=== PATIENT | female | born 1950 | race Caucasian/White ===

== ENCOUNTER → 2016-05-08 | Outpatient (CLI) | payer BC ==
[~2016-05-08] VITALS: Ht 160 cm; Wt 95.3 kg
[~2016-05-08] MED LIST: CENTTAB PO; KEPP250T5 PO; LIDOCAINE 2% INJ 100 MG/5 ML SDV (FOR ANES.) As Ordered ONE; NEXI40CA PO; NS 1,000 ML IV SCH; PROPOFOL 200 MG/20 ML VIAL As Ordered ONE; VITA200038 PO; [UNRECOGNIZED DRUG - CODE] PO
--- NOTE | 2016-05-08 09:10 | ROOR ---
Patient Name: Vicki Bourgeois Procedure Date: 05/08/2016 8:56 AM Date of : 1950 Age: 65 Room: [facility] Gender: Female Note Status: Finalized Procedure: Upper GI endoscopy Indications: Heartburn Providers: Norris Castillo MD Referring MD: DALY ELLIOTT JR, MD Requesting Provider: Medicines: Monitored Anesthesia Care Complications: No immediate complications. Procedure: Pre-Anesthesia Assessment: - The heart rate, respiratory rate, oxygen saturations, blood pressure, adequacy of pulmonary ventilation, and response to care were monitored throughout the procedure. The Endoscope was introduced through the mouth, and advanced to the second part of duodenum. The upper GI endoscopy was accomplished without difficulty. The patient tolerated the procedure well. Findings: The Z-line was variable and was found 37 cm from the incisors. A small hiatus hernia was present. No other significant abnormalities were identified in a careful examination of the stomach. The exam of the duodenum was otherwise normal. Impression: - Z-line variable, 37 cm from the incisors. - Small hiatus hernia. - No specimens collected. - The examination was otherwise normal. Recommendation: - Patient has a contact number available for emergencies. The signs and symptoms of potential delayed complications were discussed with the patient. Return to normal activities tomorrow. Written discharge instructions were provided to the patient. - High fiber diet. - Discharge patient to home. - Follow an antireflux regimen. - Continue present medications. - Return to referring physician. - The findings and recommendations were discussed with the patient's family. Norris Castillo MD Norris Castillo MD 05/08/2016 9:10:38 AM This report has been signed electronically. Number of Addenda: 0 Note Initiated On: 05/08/2016 8:56 AM Estimated Blood Loss: Estimated blood loss: none.
--- NOTE | 2016-05-08 09:27 | ROOR ---
Patient Name: Vicki Bourgeois Procedure Date: 05/08/2016 8:57 AM Date of : 1950 Age: 65 Room: [facility] Gender: Female Note Status: Finalized Procedure: Colonoscopy to Cecum + Cold Snare Polypectomy Indications: Screening for colorectal malignant neoplasm Providers: Norris Castillo MD Referring MD: DALY ELLIOTT JR, MD Requesting Provider: Medicines: Monitored Anesthesia Care Complications: No immediate complications. Procedure: Pre-Anesthesia Assessment: - The heart rate, respiratory rate, oxygen saturations, blood pressure, adequacy of pulmonary ventilation, and response to care were monitored throughout the procedure. The Colonoscope was introduced through the anus and advanced to the cecum, identified by appendiceal orifice and ileocecal valve. The colonoscopy was performed without difficulty. The patient tolerated the procedure well. The quality of the bowel preparation was excellent. Findings: The perianal and digital rectal examinations were normal. Non-bleeding internal hemorrhoids were found during retroflexion. The hemorrhoids were small and Grade I (internal hemorrhoids that do not prolapse). Scattered small-mouthed diverticula were found in the recto-sigmoid colon, in the sigmoid colon and in the descending colon. A small polyp was found at 10 cm proximal to the anus. The polyp was sessile. The polyp was removed with a cold snare. Resection and retrieval were complete. The exam was otherwise without abnormality on direct and retroflexion views. Impression: - Non-bleeding internal hemorrhoids. - Diverticulosis in the recto-sigmoid colon, in the sigmoid colon and in the descending colon. - One small polyp at 10 cm proximal to the anus, removed with a cold snare. Resected and retrieved. - The examination was otherwise normal on direct and retroflexion views. - The exam was otherwise normal to the cecum. Recommendation: - Patient has a contact number available for emergencies. The signs and symptoms of potential delayed complications were discussed with the patient. Return to normal activities tomorrow. Written discharge instructions were provided to the patient. - High fiber diet. - Discharge patient to home. - Continue present medications. - Await pathology results. - Telephone GI clinic for pathology results in 1 week. - Repeat colonoscopy for surveillance based on pathology results. - Return to referring physician. - The findings and recommendations were discussed with the patient's family. Norris Castillo MD Norris Castillo MD 05/08/2016 9:27:01 AM This report has been signed electronically. Number of Addenda: 0 Note Initiated On: 05/08/2016 8:57 AM Estimated Blood Loss: Estimated blood loss: none.
[2016-05-08 09:59] VITALS: BP 142/74
== END ==
LOC: M OPP 07:25
PROVIDERS: ATTEND Internal Medicine Gastroenterology
DX: Z12.11 Encounter for screening for malignant neoplasm of colon (principal); K64.0 First degree hemorrhoids; K57.30 Diverticulosis of large intestine without perforation or abscess without bleeding; K62.1 Rectal polyp; R12 Heartburn; K22.8 Other specified diseases of esophagus; K44.9 Diaphragmatic hernia without obstruction or gangrene; Z79.899 Other long term (current) drug therapy

== ENCOUNTER → 2016-06-12 | Outpatient (REF) | payer BC ==
[~2016-06-12] MED LIST changes: -LIDOCAINE 2% INJ 100 MG/5 ML SDV (FOR ANES.) As Ordered ONE; -NS 1,000 ML IV SCH; -PROPOFOL 200 MG/20 ML VIAL As Ordered ONE
== END ==
LOC: M LAB REF 13:18
PROVIDERS: ATTEND Nurse Practitioner Adult Health
DX: G40.309 Generalized idiopathic epilepsy and epileptic syndromes, not intractable, without status epilepticus (principal)

== ENCOUNTER → 2016-10-16 | Outpatient (CLI) | payer MEDICARE ==
--- NOTE | 2016-10-19 16:38 | REPMRS ---
Patient History The patient states she has not had a clinical breast exam in over a year. Patient has history of other cancer at age 63. No known family history of cancer. Took hormonal contraceptives for 10 years. Digital Woman Screen Mammo: October 16, 2016 - Exam #: [id number] Bilateral CC and MLO view(s) were taken. Technologist: Deloris Aranog, Technologist Prior study comparison: September 24, 2014, digital bilateral screening mammo, performed at [facility]. August 21, 2013, bilateral bilat screen digital mammo, performed at [facility] ([facility]). August 05, 2012, bilateral bilat screen digital mammo, performed at [facility] ([facility]). FINDINGS: There are scattered fibroglandular densities. There has been no change in the appearance of the mammogram from the prior studies. There is a mild amount of scattered fibroglandular density which is fairly symmetric. There is no interval development of dominant mass, architectural distortion, or clustered microcalcification suggestive of malignancy. ASSESSMENT: BI-RADS/ACR category 1 mammogram. Negative. Recommendation Routine screening mammogram in 1 year (for women over age 40). This mammogram was interpreted with the aid of an FDA-approved computer-aided dectection system. Electronically Signed By: Sean Rojas MD 10/19/16 [id number]
== END ==
LOC: M WHC 08:35
PROVIDERS: ATTEND Nurse Practitioner Adult Health
DX: Z12.31 Encounter for screening mammogram for malignant neoplasm of breast (principal); Z92.0 Personal history of contraception

== ENCOUNTER → 2016-10-30 | Outpatient (CLI) | payer MEDICARE | LOC: M WUC 11:07 | PROVIDERS: ATTEND Physician Assistant Medical | DX: R56.9 Unspecified convulsions (principal) ==

== ENCOUNTER → 2017-01-15 | Outpatient (REF) | payer MEDICARE | LOC: M LABNEURO 10:24 | PROVIDERS: ATTEND Physician Assistant Medical | DX: R56.9 Unspecified convulsions (principal); Z51.81 Encounter for therapeutic drug level monitoring; Z79.899 Other long term (current) drug therapy ==

== ENCOUNTER → 2017-03-26 | Outpatient (REF) | payer MEDICARE | LOC: M LABNEURO 08:24 | PROVIDERS: ATTEND Physician Assistant Medical | DX: R56.9 Unspecified convulsions (principal) ==

== ENCOUNTER → 2017-06-18 | Outpatient (REF) | payer MEDICARE | LOC: M LABNEURO 09:56 | DX: R56.9 Unspecified convulsions (principal) | CPT/HCPCS: 36415 ==

== ENCOUNTER → 2017-12-04 | Outpatient (CLI) | payer MEDICARE | LOC: M WHC 13:14 | DX: Z12.31 Encounter for screening mammogram for malignant neoplasm of breast (principal) | CPT/HCPCS: 77067 ==

== ENCOUNTER → 2018-01-21 | Outpatient (REF) | payer MEDICARE ==
[2018-01-24 14:15] LABS: LEVETIRACETAM (KEPPRA) 24.4 ug/mL (10.0-40.0)
== END ==
LOC: M LAB REF 16:31
DX: R56.9 Unspecified convulsions (principal)
CPT/HCPCS: 80180

== ENCOUNTER → 2018-07-22 | Outpatient (REF) | payer MEDICARE | LOC: M LAB REF 12:30 | PROVIDERS: ATTEND Nurse Practitioner Adult Health | DX: R56.9 Unspecified convulsions (principal) ==

== ENCOUNTER → 2019-05-12 | Outpatient (REF) | payer MEDICARE | LOC: M LAB REF 13:53 | PROVIDERS: ATTEND Nurse Practitioner Adult Health | DX: R56.9 Unspecified convulsions (principal) ==

== ENCOUNTER → 2019-06-16 | Outpatient (REF) | payer BC | LOC: M LABNEURO 10:35 | PROVIDERS: ATTEND Physician Assistant Medical | DX: R56.9 Unspecified convulsions (principal) ==

== ENCOUNTER → 2020-04-04 | Outpatient (CLI) | payer BC ==
[~2020-04-04] MED LIST changes: +[UNRECOGNIZED DRUG - CODE] PO; -[UNRECOGNIZED DRUG - CODE] PO
== END ==
LOC: M WUC 09:47
PROVIDERS: ATTEND Physician Assistant Medical
DX: G40.909 Epilepsy, unspecified, not intractable, without status epilepticus (principal)

== ENCOUNTER → 2020-04-28 | Outpatient (CLI) | payer BC | LOC: M WUC 09:34 | PROVIDERS: ATTEND Physician Assistant Medical | DX: G40.909 Epilepsy, unspecified, not intractable, without status epilepticus (principal) ==

== ENCOUNTER → 2020-05-20 | Outpatient (CLI) | payer BC | LOC: M WUC 09:49 | PROVIDERS: ATTEND Physician Assistant Medical | DX: R56.9 Unspecified convulsions (principal) ==

== ENCOUNTER → 2020-07-28 | Outpatient (REF) | payer BC | LOC: M LAB REF 16:28 | PROVIDERS: ATTEND Nurse Practitioner Adult Health | DX: Z79.899 Other long term (current) drug therapy (principal) ==

== ENCOUNTER → 2020-10-21 | Outpatient (CLI) | payer BC ==
--- NOTE | 2020-10-21 14:16 | REP ---
INDICATION: LOW BACK PAIN. COMPARISON: Comparison lumbar spine radiographs are from October 27, 2019.. TECHNIQUE: Helical scanning is acquired and 4 mm axial images re-formatted. Coronal and sagittal MPR images are included. FINDINGS: Lumbar vertebral body heights are preserved. There is diffuse degenerative disc disease, least pronounced at L4-5. Vacuum phenomena are noted at the degenerated L5-S1, L3-4, L2-3, and L1-2 discs. There is no evidence of fracture or collapse. There is reactive sclerosis on either side of the L5-S1 disc. No extra vertebral abnormality is appreciated. No bony destructive lesion is seen. At the T12-L1 disc level there is mild calcification along the bulging posterior margin of the disc with minimal thecal sac impression. No neural foraminal narrowing or spinal stenosis is seen. At L1-L2, there is mild diffuse disc bulging. No other finding. At L2-L3, canal size is borderline. There is mild diffuse disc bulging and some disc margin calcification is noted to the left of midline. No focal disc protrusion is seen however. No bony neural foraminal narrowing. At L3-4, there is a left lateral disc protrusion and diffuse disc bulging is seen in the remainder of the disc margin. There is mild central canal stenosis due to diffuse disc bulging in combination with mild ligamentum flavum and facet hypertrophy. At L4-5, there is mild central canal stenosis due to diffuse disc bulging and facet and ligamentum flavum hypertrophy. The facet hypertrophy is more prominent on the left than the right. No bony foraminal narrowing is seen. At L5-S1, there is moderate central canal stenosis due to diffuse large bulging and calcified disc margin. There is discogenic spurring associated with foraminal disc segment bulging bilaterally producing some encroachment of the neural foramina. Minimal facet hypertrophy is noted. IMPRESSION: Degenerative spondylosis changes throughout the lumbar spine as above. Central canal stenosis is noted at L4-5 and L5-S1. There is a left-sided lateral disc protrusion at L3-4. <Electronically signed by Sean Rojas > 10/21/20 [id number]
== END ==
LOC: M PLAIMG 12:38
PROVIDERS: ATTEND Physician Assistant Surgical
DX: M47.816 Spondylosis without myelopathy or radiculopathy, lumbar region (principal); M99.53 Intervertebral disc stenosis of neural canal of lumbar region; M54.5 Low back pain

== ENCOUNTER → 2020-11-12 | Outpatient (REF) | payer BC ==
[2020-11-12 19:04] LABS: APPEARANCE, URINE HAZY (CLEAR); BACTERIA, URINE AUTO NEGATIVE (NEGATIVE); BILIRUBIN, URINE AUTO NEGATIVE (NEGATIVE); BLOOD, URINE BLOOD NEGATIVE (NEGATIVE); COLOR, URINE YELLOW (YELLOW); GLUCOSE, URINE (UA) AUTO NEGATIVE (NEGATIVE); KETONE, URINE AUTO NEGATIVE (NEGATIVE); LEUKOCYTE ESTERASE, URINE AUTO NEGATIVE (NEGATIVE); MUCUS, URINE SMALL (NEGATIVE); NITRITE, URINE AUTO NEGATIVE (NEGATIVE); PROTEIN, URINE AUTO NEGATIVE (NEGATIVE); RBC, URINE AUTO 1 /HPF (0-3); SPECIFIC GRAVITY URINE AUTO 1.021 (1.002-1.035); SQUAMOUS EPITHELIAL CELL UR AU 2 /HPF (0-6); UROBILINOGEN, URINE AUTO 0.2 mg/dL (0.0-2.0); WBC, URINE AUTO 1 /HPF (0-3)
== END ==
LOC: M LAB REF 18:11
PROVIDERS: ATTEND Obstetrics & Gynecology
DX: N39.46 Mixed incontinence (principal)

== ENCOUNTER → 2020-11-30 | Outpatient (CLI) | payer BC ==
[2020-11-30 12:57] LABS: PLATELET COUNT, AUTOMATED 323 10^3/uL (150-450)
[2020-11-30 13:12] LABS: INR 1.08; PROTHROMBIN TIME 14.4 SECONDS (12.7-14.5)
[2020-11-30 13:13] LABS: PARTIAL THROMBOPLASTIN TIME 30.8 SECONDS (25.9-37.0)
[2020-11-30 13:25] LABS: COLLAGEN EPINEPHRINE 101 SECONDS (74-162)
== END ==
LOC: M PLALAB 10:05
PROVIDERS: ATTEND Physical Medicine & Rehabilitation
DX: M48.07 Spinal stenosis, lumbosacral region (principal)

== ENCOUNTER → 2021-02-08 | Outpatient (REF) | payer BC ==
[2021-02-10 08:09] LABS: LDL DIRECT 53 mg/dL (0-99)
== END ==
LOC: M LAB REF 16:36
PROVIDERS: ATTEND Nurse Practitioner Adult Health
DX: E78.00 Pure hypercholesterolemia, unspecified (principal)

== ENCOUNTER → 2021-02-18 | Outpatient (CLI) | payer BC ==
--- NOTE | 2021-02-18 15:44 | REP ---
INDICATION: PAIN AND SWELLING COMPARISON: Deltoid TECHNIQUE: Five views FINDINGS: There is tricompartmental marginal osteophytosis and medial compartmental narrowing. There is asymmetric patellofemoral joint space narrowing. There is no acute fracture. IMPRESSION: Chronic changes as described above. <Electronically signed by Yury Donaldson > 02/18/21 [id number]
== END ==
LOC: M WUC 14:21
PROVIDERS: ATTEND Physician Assistant Medical
DX: M25.762 Osteophyte, left knee (principal); M25.562 Pain in left knee

== ENCOUNTER → 2021-04-04 | Outpatient (CLI) | payer BC | LOC: M WUC 11:55 | PROVIDERS: ATTEND Physician Assistant | DX: M25.531 Pain in right wrist (principal); M19.031 Primary osteoarthritis, right wrist ==

== ENCOUNTER → 2021-06-07 | Outpatient (CLI) | payer MEDICARE | LOC: M WUC 09:23 | PROVIDERS: ATTEND Physician Assistant Medical | DX: R56.9 Unspecified convulsions (principal) ==

== ENCOUNTER → 2022-01-07 | Outpatient (CLI) | payer MEDICARE | LOC: M RAD 09:54 | PROVIDERS: ATTEND Physician Assistant | DX: M19.041 Primary osteoarthritis, right hand (principal); M65.311 Trigger thumb, right thumb ==

== ENCOUNTER → 2022-02-08 | Outpatient (REF) | payer MEDICARE | LOC: M LAB REF 16:21 | PROVIDERS: ATTEND Nurse Practitioner Adult Health | DX: R56.9 Unspecified convulsions (principal) ==

== ENCOUNTER → 2022-04-19 | Outpatient (REF) | payer MEDICARE ==
[2022-04-19 13:10] LABS: HEMATOCRIT 38.3 % (36.0-47.0)
[2022-04-19 13:37] LABS: PERCENT SATURATION 16.3 % (13.2-45.0)
[2022-04-19 13:39] LABS: FERRITIN 5.9 NG/ML (7.3-270.7)
== END ==
LOC: M LAB REF 12:33
PROVIDERS: ATTEND Nurse Practitioner Adult Health
DX: D56.8 Other thalassemias (principal)

== ENCOUNTER → 2022-06-03 | Outpatient (CLI) | payer MEDICARE ==
[2022-06-03 14:32] LABS: PLATELET COUNT, AUTOMATED 279 10^3/uL (150-450)
[2022-06-03 14:46] LABS: INR 1.04; PROTHROMBIN TIME 13.8 SECONDS (12.5-14.5)
[2022-06-03 14:47] LABS: PARTIAL THROMBOPLASTIN TIME 28.4 SECONDS (24.8-34.2)
== END ==
LOC: M LAB 13:52
PROVIDERS: ATTEND Physical Medicine & Rehabilitation
DX: Z01.812 Encounter for preprocedural laboratory examination (principal); Z79.899 Other long term (current) drug therapy

== ENCOUNTER → 2022-06-05 | Outpatient (REF) | payer MEDICARE ==
[2022-06-05 11:21] LABS: COLLAGEN EPINEPHRINE 106 SECONDS (74-162)
== END ==
LOC: M LAB 10:12
PROVIDERS: ATTEND Physical Medicine & Rehabilitation
DX: Z01.812 Encounter for preprocedural laboratory examination (principal)

== ENCOUNTER → 2023-01-31 | Outpatient (REF) | payer MEDICARE | LOC: M LAB REF 12:43 | PROVIDERS: ATTEND Nurse Practitioner Adult Health | DX: D56.8 Other thalassemias (principal) ==

== ENCOUNTER → 2023-06-21 | Outpatient (CLI) | payer MEDICARE | LOC: M WUC 14:30 | PROVIDERS: ATTEND Nurse Practitioner Adult Health | DX: M41.86 Other forms of scoliosis, lumbar region (principal); M43.06 Spondylolysis, lumbar region ==

== ENCOUNTER → 2023-09-12 | Outpatient (CLI) | payer MEDICARE | LOC: M WUC 10:24 | PROVIDERS: ATTEND Internal Medicine | DX: M77.32 Calcaneal spur, left foot (principal); M79.672 Pain in left foot; R22.42 Localized swelling, mass and lump, left lower limb ==

== ENCOUNTER → 2023-11-06 | Outpatient (CLI) | payer MEDICARE ==
[2023-11-06 18:04] LABS: BASO # 0.1 10^3/uL (0.0-0.2); BASO % 0.9 % (0.0-1.0); EOS # 0.2 10^3/uL (0.0-0.5); EOS % 2.7 % (0.0-3.0); HEMATOCRIT 38.2 % (36.0-47.0); HEMOGLOBIN 11.8 g/dl (12.0-15.5); LYMPH # 2.3 10^3/uL (1.5-5.0); LYMPH % 29.6 % (24.0-44.0); MEAN CORPUSCULAR HEMOGLOBIN 26.2 pg (27.0-33.0); MEAN CORPUSCULAR HGB CONC 30.9 g/dl (32.0-36.5); MEAN CORPUSCULAR VOLUME 84.9 fl (80.0-96.0); MONO # 0.5 10^3/uL (0.0-0.8); MONO % 6.8 % (2.0-8.0); NEUTROPHILS # 4.7 10^3/uL (1.5-8.5); NEUTROPHILS % 59.9 % (36.0-66.0); PLATELET COUNT, AUTOMATED 302 10^3/uL (150-450); WHITE BLOOD COUNT 7.8 10^3/uL (4.0-10.0)
[2023-11-06 18:39] LABS: ALBUMIN 3.7 G/DL (3.2-5.2); ALKALINE PHOSPHATASE 57 U/L (46-116); ALT/SGPT 23 U/L (7.0-40); AST/SGOT 16 U/L (<34); BILIRUBIN,TOTAL 0.3 MG/DL (0.3-1.2); BLOOD UREA NITROGEN 10 MG/DL (9-23); CALCIUM LEVEL 9.2 MG/DL (8.3-10.6); CARBON DIOXIDE LEVEL 28 MMOL/L (20-31); CHLORIDE LEVEL 107 MMOL/L (98-107); CREATININE FOR GFR 0.61 MG/DL (0.55-1.30); GLOMERULAR FILTRATION RATE > 60.0 (>39); GLUCOSE, FASTING 131 MG/DL (74-106); POTASSIUM SERUM 4.1 MMOL/L (3.5-5.1); SODIUM LEVEL 140 MMOL/L (136-145); TOTAL PROTEIN 6.9 G/DL (5.7-8.2)
== END ==
LOC: M WUC 12:02
PROVIDERS: ATTEND Psychiatry & Neurology Neurology
DX: R56.9 Unspecified convulsions (principal)

== ENCOUNTER → 2023-12-13 | Outpatient (REF) | payer MEDICARE ==
[2023-12-16 01:47] LABS: LDL DIRECT 67 mg/dL (<100)
== END ==
LOC: M LAB REF 12:53
PROVIDERS: ATTEND Nurse Practitioner Adult Health
DX: E78.00 Pure hypercholesterolemia, unspecified (principal)

== ENCOUNTER → 2024-06-12 | Outpatient (REF) | payer MEDICARE ==
[2024-06-12 19:07] LABS: HEMATOCRIT 38.5 % (36.0-47.0)
[2024-06-12 19:24] LABS: FERRITIN 4.5 NG/ML (7.3-270.7)
[2024-06-12 19:33] LABS: PERCENT SATURATION 9.3 % (13.2-45.0)
== END ==
LOC: M LAB REF 16:55
PROVIDERS: ATTEND Nurse Practitioner Adult Health
DX: D64.9 Anemia, unspecified (principal)

== ENCOUNTER → 2024-12-09 | Outpatient (REF) | payer MEDICARE ==
[2024-12-09 15:30] LABS: IRON (FE) 41.0 UG/DL (50-170)
[2024-12-09 15:31] LABS: PERCENT SATURATION 10.6 % (13.2-45.0)
[2024-12-11 10:06] LABS: RBC FOLATE 630.0 NG/ML (280-791)
== END ==
LOC: M LAB REF 14:20
PROVIDERS: ATTEND Nurse Practitioner Adult Health
DX: D64.9 Anemia, unspecified (principal)